=== PATIENT | male | born 1995 | race Caucasian/White ===

== ENCOUNTER → 2016-07-30 | Outpatient (CLI) | payer OTHER ==
--- NOTE | 2016-07-30 13:16 | RAD ---
Chest, 2 views, 07/30/2016: History: Chest discomfort The heart size and pulmonary vascularity are normal. No pulmonary infiltrates are seen. There is no evidence of pleural fluid. There is a mild thoracic scoliosis. IMPRESSION: No acute cardiopulmonary abnormality is detected.
== END | disposition home or self-care (01) ==
LOC: DXRADRC 08:42
PROVIDERS: ATTEND Physician Assistant Medical
DX: M41.84 Other forms of scoliosis, thoracic region (principal); R07.89 Other chest pain
CPT/HCPCS: 71020

== ENCOUNTER 2016-10-28 17:55 | Emergency (ER) | payer OTHER ==
[~2016-10-28] VITALS: Ht 180.3 cm; Wt 56.8 kg
[2016-10-28 18:06] VITALS: BP 134/90
--- NOTE | 2016-10-28 18:23 | PHYS DOC ---
Past History Past Medical History: No Pertinent History Past Surgical History: No Surgical History Alcohol Use: Occasionally Drug Use: None Adult General Chief Complaint Chief Complaint: FINGER INJURY HPI HPI Patient is a 21 year old male who presents with complaint of right middle finger injury. The patient states that he accidentally crushed the tip of his right middle finger in a door. This constant protrusion of underlying nail matrix through the tip of the nail. Patient also states that this has caused bruising underneath the nail. This happened earlier this morning. Patient denies any other injuries. Patient rates his pain currently is 8 out of 10. Patient has cleaned and bandaged the area prior to coming in to the emergency department. Patient is up-to-date on his tetanus shot. Review of Systems Review of Systems Constitutional: Denies fever or chills [] Musculoskeletal: Right middle finger injury [] Integument: Denies rash or skin lesions [] Neurologic: Denies headache, focal weakness or sensory changes [] Current Medications Current Medications Current Medications Medications (Trade) Dose Ordered Sig/Elly Start Time Stop Time Status Last Admin Dose Admin Lidocaine HCl 30 ml 1X ONCE 10/28/16 18:30 10/28/16 18:31 Allergies Allergies Allergies Coded Allergies Type Severity Reaction Last Updated Verified No Known Drug Allergies 10/28/16 No Physical Exam Physical Exam Constitutional: Well developed, well nourished, no acute distress, non-toxic appearance. [] HENT: Normocephalic, atraumatic, bilateral external ears normal, oropharynx moist, no oral exudates, nose normal. [] Skin: Warm, dry, no erythema, no rash. [] Extremities: Crush injury to distal tip of right third digit of hand, protrusion of nail matrix to distal tip of nail bed, subungual hematoma present. [] Neurologic: Alert and oriented X 3, normal motor function, normal sensory function, no focal deficits noted. [] Current Patient Data Vital Signs Vital Signs Date Time Temp Pulse Resp B/P (MAP) Pulse Ox O2 Delivery O2 Flow Rate FiO2 10/28/16 18:06 97.8 90 20 98 Room Air Lab Results None EKG EKG Not performed [] Radiology/Procedures Radiology/Procedures Indication: Resection of devitalized tissue Procedure: The patient was positioned appropriately. Local anesthesia was was achieved with injection of lidocaine 1% at the base of the right third digit of the hand in a digital block pattern. Nail matrix tissue was resected down to the base of the defect in viable tissue was replaced underneath the fingernail. The fingernail was then trephinated until return of blood was achieved. The right third finger was then dressed with antibiotic ointment, nonadherent pad, and tube gauze. The patient tolerated the procedure without difficulty. Complications: None[] Course & Med Decision Making Course & Med Decision Making Pertinent Labs and Imaging studies reviewed. (See chart for details) The patient's wound was treated as outlined in the procedure note. Patient was offered x-ray imaging to check for distal tuft fracture. The patient declined x- ray as this does not necessarily change the patient's treatment plan. This is not unreasonable and the patient is aware that he may have a possible fracture of his right third finger that will require no operative intervention at this time. Advised follow-up in one week primary doctor if symptoms are not improving. The patient will be discharged with a prescription for 5 days of Keflex for prophylaxis. Advised return emergency department for any worsening symptoms. Patient voiced understanding and in agreement with treatment plan. Dragon Disclaimer Dragon Disclaimer This chart was dictated in whole or in part using Voice Recognition software in a busy, high-work load, and often noisy Emergency Department environment. It may contain unintended and wholly unrecognized errors or omissions. Departure Departure: Impression: Primary Impression: Injury of right middle finger Disposition: 01 HOME, SELF-CARE Condition: IMPROVED Referrals: MIRTHA ALDANA (PCP) Patient Instructions: Nail Avulsion Injury Additional Instructions: Follow-up in one week with your primary doctor if symptoms are not improving for reevaluation. Return emergency department for any worsening symptoms. Scripts Cephalexin (KEFLEX) 500 Mg Capsule 1 CAP PO TID, #15 CAP Prov: ELENA ZAMAN MD 10/28/16 Problem Qualifiers Primary Impression: Injury of right middle finger Encounter type: initial encounter Qualified Codes: S69.91XA - Unspecified injury of right wrist, hand and finger(s), initial encounter ELENA ZAMAN MD Oct 28, 2016 18:23
[2016-10-28] MEDS ORDERED: LIDOCAINE 1% PF 30 ML VIAL. INJ ONE (18:30)
[2016-10-28] MEDS ORDERED: CEPH-264 PO (18:38)
== END 2016-10-28 19:01 | disposition home or self-care (01) ==
LOC: ER 17:55
DX: S69.91XA Unspecified injury of right wrist, hand and finger(s), initial encounter (principal); W23.0XXA Caught, crushed, jammed, or pinched between moving objects, initial encounter; Y93.89 Activity, other specified; Y99.8 Other external cause status; Y92.89 Other specified places as the place of occurrence of the external cause
CPT/HCPCS: 11750; 99285-25